=== PATIENT | male | born 1990 | race Two or more races ===

== ENCOUNTER 2025-01-01 22:13 | Emergency (ER) | payer MEDICAID ==
[~2025-01-01] VITALS: Ht 175.3 cm; Wt 68.0 kg
[2025-01-01 22:32] VITALS: TEMP 98.6
[2025-01-01] MEDS: KETOROLAC TROMETHAMINE 30 MG/ML VIAL IM ONE (23:27)
[2025-01-01] MEDS: ACETAMINOPHEN 500 MG TABLET PO ONE (23:28)
[2025-01-01] MEDS: AMOX TR/POT CLAV 875 MG/125 MG TABLET PO ONE (23:28)
[2025-01-01] MEDS ORDERED: AMOX-457 PO (23:54)
[2025-01-02 00:01] VITALS: BP 134/90; PULSE 117; RESP 18; O2SAT 99
== END 2025-01-02 00:15 | disposition home or self-care (01) ==
LOC: EMS 22:15
DX: S02.5XXA Fracture of tooth (traumatic), initial encounter for closed fracture (principal); K02.9 Dental caries, unspecified; X58.XXXA Exposure to other specified factors, initial encounter; Y93.89 Activity, other specified; Y92.89 Other specified places as the place of occurrence of the external cause; Y99.8 Other external cause status
CPT/HCPCS: 99283; 96372; J1885